=== PATIENT | female | born 1955 | race Hispanic/Latino ===

== ENCOUNTER 2018-09-14 19:49 | Observation (INO) | payer SELFPAY ==
[2018-09-14] MEDS ORDERED: Acetaminophen 325 MG TAB PO PRN (22:22)
[2018-09-14] MEDS ORDERED: Dextrose 5 % And 0.9 % NaCl 1,000 ML IV SCH (22:30)
[2018-09-14] MEDS ORDERED: HumaLOG 300 UNITS/3 ML VIAL SC PRN (22:36)
[2018-09-14] MEDS ORDERED: Dextrose 50% Abboject 50 ML SYRINGE SLOW IVP PRN (22:36)
[2018-09-14] MEDS ORDERED: Dextrose 5% in Water 1,000 ML IV PRN (22:36)
[2018-09-14] MEDS ORDERED: Sodium Chloride 0.9% 1,000 ML IV SCH (22:45)
[2018-09-15 00:26] VITALS: BMI 21.0
[2018-09-15 01:24] LABS: Troponin I Less than 0.010 ng/mL (< 0.028)
--- NOTE | 2018-09-15 02:19 | HP ---
CHIEF COMPLAINT: Chest pain and right arm weakness. HISTORY OF PRESENT ILLNESS: The patient is a very pleasant 62-year-old female who initially presented to the hospital at [facility] with multiple complaints of chest tightness and also right arm weakness and also vomiting all day today. The patient stated that all day today has been having headache around her frontal area, which she normally does not have. She also stated that this morning she had some numbness in her right upper extremity, which currently has resolved. She also complained of some chest tightness, which currently is not present. The patient did state that she was nauseated and vomited about 5 times all day today and has not been eating or drinking very much. The patient denies any fevers or chills. Denies any diarrhea. Denies any abdominal pain. The patient's son is at the bedside, states that she has been living in a home that possibly has mold which could be causing some of the patient's symptoms. The patient has a history of Lassiter's palsy and there was a concern for possible stroke, so they brought her in to the hospital for further evaluation. PAST MEDICAL HISTORY: She has a history of diabetes, currently on metformin. She also has a history of hypertension. She has a history of hypothyroidism and has a history of hyperlipidemia. She also has a history of Lassiter's palsy. PAST SURGICAL HISTORY: She has had an appendectomy, she has had a cholecystectomy, and she has had an oophorectomy. SOCIAL HISTORY: She denies any alcohol use, drug use, or smoking history, but she is currently a full code. REVIEW OF SYSTEMS: All negative except for the ones mentioned above in the HPI. ALLERGIES: SHE IS ALLERGIC TO CODEINE, SULFA, AND PENICILLIN. MEDICATIONS: 1. Lisinopril 2.5 mg daily. 2. Levothyroxine 50 mcg daily. 3. Tradjenta 5 mg daily. 4. Lovastatin 20 mg daily. 5. Glipizide 5 mg daily. 6. Motrin 800 mg as needed. PHYSICAL EXAMINATION: VITAL SIGNS: Temperature of 98.8, and 96% on room air, respirations 16, blood pressure 149/74. GENERAL: She is awake, alert, and oriented x3. Does not appear in distress. CV: S1 and S2 present. No murmurs, rubs, or gallops. LUNGS: Clear to auscultation. No rhonchi or wheezes noted. HEENT: Mucous membranes do appear a little bit on the dryer side. No lymphadenopathy noted. NEUROLOGIC: She does have mild Lassiter's palsy on her left facial area. A 5/5 bilateral upper extremity strength, 5/5 bilateral lower extremity strength. Sensation intact in bilateral upper and bilateral lower. Cranial nerves 3 through 11 are intact. Cerebellum, [id number] and [id number] is intact. SKIN: No cuts, lesions, or bruises noted. IMAGING DATA: EKG appears to be normal. She did have a CT head, which indicated a low density area in the left hemisphere below the sylvian fissure which could be a possible stroke of an indeterminate age. Chest x-ray appeared to be normal. LABORATORY DATA: As of following; sodium of 139, potassium 3.9, BUN of 21, and creatinine of 1.04. Sugar was 212. Calcium was 12.0. Hematology; WBC 7.4, hemoglobin of 12.3, hematocrit of 33.8, her platelets were 108. She had no bands. Urine was not done. ASSESSMENT AND PLAN: The patient is a very pleasant 62-year-old female who presents to the hospital with multiple complaints. 1. Right arm numbness. This could be possible transient ischemic attack. Given the CT findings, we will get an MRI brain to rule out any acute abnormalities. We will also get a carotid Doppler. We will put the patient on aspirin and also on a statin for now. 2. Chest tightness. She has no EKG changes. Her troponin x1 was negative. We will try to trend the next troponin. However, given her history of hypertension, diabetes, and her age, I will go ahead and do a stress test since she has never really had one. 3. Mild dehydration. She does have an elevated BUN and also her calcium is very high. We will hydrate her gently overnight. 4. Hypercalcemia. I will check a PTH. Her last PTH was pretty high. We will check a PTH and vitamin D level just to make sure she might have either primary hyperparathyroidism is the possibility. 5. Deep vein thrombosis prophylaxis. We will put the patient on some sequential compression devices. We will admit the patient under observation. Possible discharge tomorrow if all her test results are negative. Job ID: [id number]
[2018-09-15] MEDS ORDERED: Levothyroxine Sodium 50 MCG TAB PO SCH (06:00)
[2018-09-15 06:29] LABS: ALT (SGPT) 10 U/L (8-55); AST (SGOT) 10 U/L (5-34); Albumin 3.1 g/dL (3.4-4.8); Alkaline Phosphatase 43 U/L (40-150); Anion Gap 8 mmol/L (10-20); BUN (Urea Nitrogen) 21 mg/dL (9.8-20.1); Bilirubin, Total 0.2 mg/dL (0.2-1.2); Calc. Creatinine Clearance 43 mL/min (70-130); Calcium 10.1 mg/dL (7.8-10.44); Carbon Dioxide 24 mmol/L (23-31); Cardiac Risk 4.9 (Less than 4.5); Chloride 113 mmol/L (98-107); Cholesterol 175 mg/dl (< 200 Desired); Estimated GFR-MDRD 49; Globulin 1.9 g/dL (2.4-3.5); Glucose 136 mg/dL (80-115); HDL Cholesterol 36 mg/dL (>60 Neg Risk); LDL Cholesterol, Calculated 112 mg/dL; Potassium 3.6 mmol/L (3.5-5.1); Sodium 141 mmol/L (136-145); Triglycerides 137 mg/dL (Less than 150)
[2018-09-15] MEDS ORDERED: Artificial Tears 18 DROP/0.9 ML EA EYE PRN (06:42)
[2018-09-15] MEDS ORDERED: Sodium Chloride 0.65% Nasal 44 ML BOT EA NARE PRN (06:42)
[2018-09-15] MEDS ORDERED: Loperamide HCl 2 MG CAP PO PRN (06:42)
[2018-09-15] MEDS ORDERED: Eucerin (Mineral Oil/Petrolatum,White) 30 gm Jar TOP PRN (06:42)
[2018-09-15] MEDS ORDERED: Diabetic Tussin 200 MG/10 ML UDCUP PO PRN (06:42)
[2018-09-15] MEDS ORDERED: Cepastat Lozenges 1 LOZ PO PRN (06:42)
[2018-09-15] MEDS ORDERED: Calcium Carbonate 500 MG ChewTAB PO PRN (06:42)
[2018-09-15] MEDS ORDERED: Senokot S 8.6-50 MG TAB PO PRN (06:42)
[2018-09-15] MEDS ORDERED: Acetaminophen 500 MG TAB PO PRN (06:42)
[2018-09-15] MEDS ORDERED: Ondansetron PF 4 MG/2 ML Vial IVP PRN (06:42)
[2018-09-15] MEDS ORDERED: Ondansetron ODT 4 MG TAB PO PRN (06:42)
[2018-09-15] MEDS ORDERED: hydrALAZINE 20 MG/ML VIAL SLOW IVP PRN (06:42)
[2018-09-15] MEDS ORDERED: Loratadine 10 MG TAB PO PRN (06:42)
[2018-09-15] MEDS ORDERED: Zolpidem Tartrate 5 MG TAB PO PRN (06:42)
[2018-09-15] MEDS ORDERED: Bisacodyl 10 MG SUPP PR PRN (06:42)
[2018-09-15] MEDS ORDERED: HumaLOG 300 UNITS/3 ML VIAL SC PRN ×2 (06:43)
[2018-09-15 06:50] LABS: #Basophils 0.1 thou/uL (0.0-0.2); #Eosinphils 0.1 thou/uL (0.0-0.7); #Lymphocytes 1.6 thou/uL (1.20-3.40); #Monocytes 0.5 thou/uL (0.11-0.59); #Neutrophils 2.9 thou/uL (1.40-6.50); %Basophils 1.3 % (0.0-1.0); %Eosinophils 1.5 % (0.0-10.0); %Lymphocytes 31.7 % (21.0-51.0); %Monocytes 9.2 % (0.0-10.0); %Neutrophils 56.3 % (42.0-75.0); Hemoglobin 10.3 g/dL (12.0-16.0); Mean Corpuscular HGB CONC 34.3 g/dL (32.0-36.0); Mean Corpuscular Hemoglobin 32.2 pg (27.0-31.0); Mean Corpuscular Volume 93.9 fL (78.0-98.0); Mean Platelet Volume 9.2 fL (7.4-10.4); Platelet Count 93 thou/uL (130-400); RBC Distribution Width 11.4 % (11.5-14.5); Red Blood Cell (RBC) Count 3.21 mill/uL (4.20-5.40); White Blood Cell (WBC) Count 5.1 thou/uL (4.8-10.8)
[2018-09-15 06:51] LABS: PLT Morphology Comment Appears Decreased; RBC Morphology Normal
[2018-09-15 07:51] LABS: Phosphorus 2.3 mg/dL (2.3-4.7)
--- NOTE | 2018-09-15 08:57 | PDOC.PN ---
- Subjective Encounter Start Date: 09/15/18 Encounter Start Time: 07:30 -: old records requested/rev Patient seen and examined. No new complaints. No overnight events - Objective Resuscitation Status - Order Detail: 09/14/18 22:22 Resuscitation Status Routine Resuscitation Status: FULL: Full Resuscitation MAR Reviewed: Yes Vital Signs & Weight: Vital Signs (12 hours) Temp Pulse Resp BP Pulse Ox 09/15/18 08:00 98.2 F 74 20 104/50 L 95 09/15/18 04:00 98/50 L 09/15/18 03:52 98.0 F 65 16 82/32 L 96 09/14/18 23:15 99.2 F 68 18 103/41 L 97 Weight Weight 115 lb 1.6 oz I&O: 09/14/18 09/15/18 09/16/18 06:59 06:59 06:59 Intake Total 725 Balance 725 Result Diagrams: 09/15/18 05:40 09/15/18 05:40 Additional Labs: Accuchecks 09/15/18 05:23 POC Glucose 132 H Radiology Reviewed by me: Yes EKG Reviewed by me: Yes (nsr) Phys Exam - Physical Examination Constitutional: NAD HEENT: PERRLA, moist MMs, sclera anicteric Neck: no JVD, supple Respiratory: no wheezing, no rales, no rhonchi Cardiovascular: RRR, no significant murmur, no rub Gastrointestinal: soft, non-tender, no distention, positive bowel sounds Musculoskeletal: no edema, pulses present Neurological: non-focal, normal sensation, moves all 4 limbs Lymphatic: no nodes Psychiatric: normal affect, A&O x 3 Skin: no rash, normal turgor Dx/Plan (1) Chest pain Code(s): R07.9 - CHEST PAIN, UNSPECIFIED Status: Acute Comment: atypica, stress test ordered (2) Dehydration Code(s): E86.0 - DEHYDRATION Status: Resolved (3) Hypercalcemia Code(s): E83.52 - HYPERCALCEMIA Status: Resolved (4) Right arm numbness Code(s): R20.0 - ANESTHESIA OF SKIN Status: Resolved (5) Anemia, normocytic normochromic Code(s): D64.9 - ANEMIA, UNSPECIFIED Status: Chronic (6) Diabetes type 2, controlled Code(s): E11.9 - TYPE 2 DIABETES MELLITUS WITHOUT COMPLICATIONS Status: Chronic (7) Dyslipidemia Code(s): E78.5 - HYPERLIPIDEMIA, UNSPECIFIED Status: Chronic (8) Hypertension Code(s): I10 - ESSENTIAL (PRIMARY) HYPERTENSION Status: Chronic (9) Thrombocytopenia Code(s): D69.6 - THROMBOCYTOPENIA, UNSPECIFIED Status: Chronic - Plan cont current plan of care, plan discussed w/ family * today stress test, MRI, carotid doppler * advised to follow up with PCP for high PTH and high calcium, she is advised to avoid dairy products and calcium supplements * medication reviewed as below * symptomatic treatment * discussed with son * if all test negative, will consider discharge. Review of Systems - Review of Systems ENT: negative: Ear Pain, Ear Discharge, Nose Pain, Nose Discharge, Nose Congestion, Mouth Pain, Mouth Swelling, Throat Pain, Throat Swelling, Other Respiratory: negative: Cough, Dry, Shortness of Breath, Hemoptysis, SOB with Excertion, Pleuritic Pain, Sputum, Wheezing Cardiovascular: negative: chest pain, palpitations, orthopnea, paroxysmal nocturnal dyspnea, edema, light headedness, other Gastrointestinal: negative: Nausea, Vomiting, Abdominal Pain, Diarrhea, Constipation, Melena, Hematochezia, Other Genitourinary: negative: Dysuria, Frequency, Incontinence, Hematuria, Retention , Other Musculoskeletal: negative: Neck Pain, Shoulder Pain, Arm Pain, Back Pain, Hand Pain, Leg Pain, Foot Pain, Other Skin: negative: Rash, Lesions, John, Bruising, Other - Medications/Allergies Allergies/Adverse Reactions: Allergies Allergy/AdvReac Type Severity Reaction Status Date / Time codeine Allergy Verified 05/15/15 15:29 Penicillins Allergy Hives Verified 09/15/18 08:53 Medications: Current Medications Acetaminophen (Tylenol) 500 mg PO Q6H PRN PRN Reason: Mild Pain (1-3) Artificial Tears (Tears Naturale) 2 drop EA EYE PRN PRN PRN Reason: Dry Eyes Aspirin (Ecotrin) 325 mg PO DAILY ARA Atorvastatin Calcium (Lipitor) 10 mg PO QPM ARA Bisacodyl (Dulcolax) 10 mg ME DAILYPRN PRN PRN Reason: Constipation Calcium Carbonate (Tums) 1,000 mg PO Q4H PRN PRN Reason: Heartburn or Indigestion Dextrose/Water (Dextrose 50%) 25 gm SLOW IVP PRN PRN PRN Reason: Hypoglycemia Enoxaparin Sodium (Lovenox) 40 mg SC 0900 [facility] Glucagon (Glucagon) 1 mg IM PRN PRN PRN Reason: Hypoglycemia Guaifenesin (Robitussin Sf) 200 mg PO Q4H PRN PRN Reason: Cough Hydralazine HCl (Apresoline) 10 mg SLOW IVP Q4H PRN PRN Reason: SBP > 180 and HR < 70 Dextrose/Water (D5w) 1,000 mls @ 0 mls/hr IV .Q0M PRN PRN Reason: Hypoglycemia Sodium Chloride (Normal Saline 0.9%) 1,000 mls @ 75 mls/hr IV .[id number] [facility] Last Admin: 09/15/18 00:42 Dose: 1,000 mls Influenza Virus Vaccine Quadrival (Fluzone Quad [id number] Syringe) 0.5 ml IM .ONCE ONE Stop: 09/15/18 09:01 Insulin Human Lispro (Humalog) 0 units SC .MODERATE SLIDING SC PRN PRN Reason: Moderate Correctional Scale Insulin Human Lispro (Humalog) 0 units SC .BEDTIME SLIDING SC PRN PRN Reason: Bedtime Correctional Scale Levothyroxine Sodium (Synthroid) 50 mcg PO 0600 [facility] Last Admin: 09/15/18 05:24 Dose: 50 mcg Lisinopril (Zestril) 2.5 mg PO DAILY [facility] Loperamide HCl (Imodium) 2 mg PO PRN PRN PRN Reason: Diarrhea/Loose Stools Loratadine (Claritin) 10 mg PO DAILYPRN PRN PRN Reason: Sinus Symptoms Mineral Oil/White Petrolatum (Eucerin Cream) 0 gm TOP BIDPRN PRN PRN Reason: Dry Skin Ondansetron HCl (Zofran Odt) 4 mg PO Q6H PRN PRN Reason: Nausea/Vomiting Ondansetron HCl (Zofran) 4 mg IVP Q6H PRN PRN Reason: Nausea/Vomiting Pioglitazone HCl (Actos) 30 mg PO DAILY [facility] Senna/Docusate Sodium (Senokot S) 2 tab PO BID PRN PRN Reason: Constipation Sodium Chloride ([place] 0.65%) 0 ml EA NARE QIDPRN PRN PRN Reason: Nasal Congestion Throat Lozenges (Cepastat Lozenges) 1 dima PO Q2H PRN PRN Reason: Sore Throat Zolpidem Tartrate (Ambien) 5 mg PO HSPRN PRN PRN Reason: Insomnia
[2018-09-15] MEDS ORDERED: Aspirin 325 mg Enteric Coated Tablet PO SCH (09:00)
[2018-09-15] MEDS ORDERED: Lisinopril 2.5 MG TAB PO SCH (09:00)
[2018-09-15] MEDS ORDERED: Pioglitazone HCl 15 MG TAB PO SCH (09:00)
[2018-09-15] MEDS ORDERED: Enoxaparin Sodium 40 MG/0.4 ML SYRINGE SC SCH (09:00)
--- NOTE | 2018-09-15 10:57 | ULT ---
BILATERAL CAROTID DUPLEX ULTRASOUND: DATE: 09/15/18 HISTORY: TIA. TECHNIQUE: Calderon scale ultrasound with color flow and spectral Doppler imaging of the extracranial carotid artery systems performed bilaterally. FINDINGS: There is plaque formation on either side. The peak systolic velocity in the right ICA measures 96 cm/second with an end-diastolic velocity of 2 7 cm/second and a systolic ratio of 1.39. The peak systolic velocity in the left ICA measures 97 cm/second with an end-diastolic velocity of 40 cm/second and a systolic ratio of 1.08. Flow in both vertebral arteries remains antegrade. IMPRESSION: No evidence of hemodynamically significant stenosis. POS: [facility]
--- NOTE | 2018-09-15 11:46 | MRI ---
MRI BRAIN WITHOUT CONTRAST: Date: 09/15/18 HISTORY: Headache. COMPARISON: CT brain from previous day. FINDINGS: No restricted diffusion is seen. Foci of T2 prolongation in the periventricular subcortical white mat ter consistent with mild chronic small vessel ischemic disease. The ventricular size is appropriate a nd the basilar cisterns are patent. There is mucosal disease in the paranasal sinuses. IMPRESSION: No evidence of acute process. POS: [facility]
--- NOTE | 2018-09-15 17:27 | NM ---
CARDIAC SPECT: HISTORY: A 62-year-old female with chest pain, hypertension, diabetes, and dyslipidemia. TECHNIQUE: A myocardial perfusion scan was performed using the single isotope one-day protocol with technetium 9 9m sestamibi, and 9 millicuries was injected intravenously for the rest exam, followed by 27 millicur ies for the stress study. Pharmacologic stress with adenosine was monitored and interpreted by Dr. Danny carmona. FINDINGS: A homogeneous tracer distribution is seen in the myocardial segments on stress and rest images withou t fixed or reversible defects. GATED SPECT LVEF: 87%. WALL MOTION EXAM: Normal. IMPRESSION: Normal myocardial perfusion scan. POS: [facility]
[2018-09-15 19:37] VITALS: BP 120/46; TEMP 98.1
--- NOTE | 2018-09-15 19:52 | DIS ---
DATE OF ADMISSION: 09/14/2018 DATE OF DISCHARGE: 09/15/2018 PRIMARY CARE PHYSICIAN: Dr. Byron Zhu. DISCHARGE DISPOSITION: Home. PRIMARY DISCHARGE DIAGNOSES: Chest pain ruled out acute coronary syndrome ruled out transient ischemic attack and cerebrovascular accident. SECONDARY DISCHARGE DIAGNOSES: Diabetes type 2, hypertension, dyslipidemia, hypothyroidism. PRIMARY PROCEDURE/OPERATION: None. Radiological investigation, carotid Doppler, normal. MRI brain, normal. Stress test negative. SIGNIFICANT LABORATORY DATA: Hemoglobin 10.3, platelets 93. Sodium 141, creatinine 1.12. LFT normal. LDL 112. DISCHARGE MEDICATIONS: Aspirin 81 mg daily, glipizide 5 mg b.i.d., Synthroid 50 mcg daily, Tradjenta 5 mg daily, lisinopril 2.5 mg daily, Actos 30 mg daily, Zocor 20 mg p.o. q.p.m. CONTRAINDICATION: None. CODE STATUS: Full code. INPATIENT : None. ALLERGIES: CODEINE AND PENICILLIN. DISCHARGE PLAN: Posthospital, the patient will follow up with primary care physician in one week. HOSPITAL COURSE: A 62-year-old female, who was admitted by Dr. Jacklyn Camarena. Please see her H and P for further details. The patient was admitted for chest pain and to rule out CVA. She had stress test done, which was completely normal. She had MRI of brain and carotid Doppler, which were normal. The patient did not have any neurological deficit. The patient was observed 24 hours in hospital. Her telemetry remained unremarkable and she was asymptomatic. The patient was seen and examined at bedside today. Please see my progress note from today for further detail. The patient is medically stable for discharge today. Job ID: [id number]
[2018-09-15] MEDS ORDERED: Atorvastatin Calcium 10 MG TAB PO SCH (21:00)
--- NOTE | 2018-09-20 15:35 | EKG ---
Test Reason : CVA RO Blood Pressure : / mmHG Vent. Rate : 086 BPM Atrial Rate : 086 BPM P-R Int : 146 ms QRS Dur : 078 ms QT Int : 382 ms P-R-T Axes : 049 029 043 degrees QTc Int : 457 ms Normal sinus rhythm Normal ECG Confirmed by KENDELL STOVER ([id number]), city editor FANY ARITA ([id number]) on 09/20/2018 3:34:48 PM Referred By: Confirmed By:KENDELL STOVER
== END 2018-09-15 20:33 | disposition home or self-care (01) ==
LOC: ERS 19:49 → 2SE 21:58
PROVIDERS: ADMIT Internal Medicine; ATTEND Internal Medicine
DX: R07.89 Other chest pain (principal); R20.0 Anesthesia of skin; R29.898 Other symptoms and signs involving the musculoskeletal system; E11.9 Type 2 diabetes mellitus without complications; I10 Essential (primary) hypertension; E03.9 Hypothyroidism, unspecified; E78.5 Hyperlipidemia, unspecified; E86.0 Dehydration; E83.52 Hypercalcemia; D64.9 Anemia, unspecified; D69.6 Thrombocytopenia, unspecified; Z79.84 Long term (current) use of oral hypoglycemic drugs; Z79.899 Other long term (current) drug therapy; Z88.0 Allergy status to penicillin; Z88.2 Allergy status to sulfonamides; Z88.5 Allergy status to narcotic agent
CPT/HCPCS: 36415; 36416; 70551; 78452; 80053; 80061; 82306; 83735; 83970; 84100; 84484; 85025; 90471; 90686; 93005; 93017; 93880; 94760; 96360; 96361; 96372; A9500; G0008; G0378; J1650